=== PATIENT | male | born 1945 | race African-American/Black ===

== ENCOUNTER 2017-01-31 17:36 | Inpatient (IN) | payer MEDICARE, MEDICAID ==
[~2017-01-31] VITALS: Ht 185.4 cm; Wt 84.8 kg
--- NOTE | 2017-01-31 18:00 | NUR ---
[id number]: PT IS 71 YEARS OLD MALE ADMITTED ON 5150 FOR DTS AND DTO. ACCORDING TO THE HOLD PT IS ENDORSING BY SUICIDE AND HEARING VOICES TELLING HIM TO HARM HIMSELF. UPON INTERVIEWING ACCORDING TO THE HOLD, PT PRESENTS AGITATED, ORIENTEDX3. PT STATES, 'MULTIPLE VOICES ARE SAYING RU INTO TRAFFIC, GET HIT BY THE CAR AND TELLING ME TO BLOW MY BRAINS." PT HAS DIAGNOSIS OF SCHIZOPHRENIA, PARANOID TYPE. PT HAS CONGESTIVE HEART FAILURE, CAD, DM TYPE 2, HYPERCHOLESTEREMIA, HYPERLIPIDEMIA, HTN. NOTIFIED DR. IGLESIAS ABOUT NEW ADMISSION. BELONGINGS STORED AND DOCUMENTED. CONSENT DONE. NO COMPUTER DOCUMENTATION COMPLETED. WILL ENDORSE TO INCOMING NURSE TO COMPLETE ADMISSION AND CONTINUATION OF CARE.
[2017-01-31 18:36] VITALS: BP 140/82
[2017-01-31 20:25] VITALS: BP 142/77
--- NOTE | 2017-01-31 21:00 | NUR ---
GPS RN NOTE: NOTIFIED DR. CERVANTES TO RECONCILE MEDICATION. PER PATIENT HE DOES NOT WANT HIS FAMILY TO BE INFORMED OF HIS ADMISSION. WILL CONTINUE TO MONITOR [id number] FOR SAFETY.
[2017-01-31] MEDS ORDERED: HYDR-548 PO (21:50)
[2017-01-31] MEDS ORDERED: OLAN20TA3 PO (21:51)
[2017-01-31] MEDS ORDERED: PENT400T2 PO (21:53)
[2017-01-31] MEDS ORDERED: ASPI-991 PO (21:54)
[2017-01-31] MEDS ORDERED: ATOR40TA PO (21:55)
[2017-01-31] MEDS ORDERED: BENZ2TAB7 PO (21:56)
[2017-01-31] MEDS ORDERED: BIMA2.5D5 EACHEYE (21:57)
[2017-01-31] MEDS ORDERED: CARI350T27 PO (21:59)
[2017-01-31] MEDS ORDERED: BUDE10.2 INH (21:59)
[2017-01-31] MEDS ORDERED: CARV3.122 PO (22:00)
[2017-01-31] MEDS ORDERED: CLOP75TA2 PO (22:01)
[2017-01-31] MEDS ORDERED: CYCL5TAB PO (22:03)
[2017-01-31] MEDS ORDERED: DORZ10DR EACHEYE (22:05)
[2017-01-31] MEDS ORDERED: FERR325T28 PO (22:07)
[2017-01-31] MEDS ORDERED: METF10002 PO (22:08)
[2017-01-31] MEDS ORDERED: NITR0.4T6 SL (22:11)
[2017-01-31] MEDS ORDERED: RANI150T12 PO (22:12)
[2017-01-31] MEDS ORDERED: SPIR25TA4 PO (22:13)
[2017-01-31] MEDS ORDERED: TRIH2TAB5 PO (22:14)
[2017-01-31] MEDS ORDERED: TEMAZEPAM 7.5 MG CAPSULE PO PRN (22:30)
[2017-01-31] MEDS ORDERED: ACETAMINOPHEN 325 MG TABLET PO PRN (22:30)
[2017-01-31] MEDS ORDERED: clonazePAM 0.5 MG TABLET PO PRN (22:30)
[2017-01-31] MEDS ORDERED: MAGNESIUM HYDROXIDE 30 ML UDC PO PRN (22:30)
--- NOTE | 2017-02-01 06:00 | NUR ---
GPS RN NOTES: PATIENT STATED HE IS STILL HEARING MULTIPLE VOICES TELLING HIM TO HURT HIMSELF AND OTHERS. NO PLANS OF DOING IT. PATIENT STATED THAT HE IS TRYING TO CONTROL IT. PATIENT ALSO SIGNED THE CONTRACT FOR SAFETY. WILL CONTINUE TO MONITOR [id number] FOR SAFETY
[2017-02-01 08:00] VITALS: BP 126/81
[2017-02-01] MEDS ORDERED: NITR0.6T SL (13:34)
--- NOTE | 2017-02-01 15:04 | NUR ---
GPS RN NOTE: DR CONTRERAS NOTIFIED TO [facility]ED HOME [facility], WITH ACCU CHECK AND INSULIN COVERAGE NO NEW ORDERS AT THIS TIME WILL CONTINUE MONITORING
[2017-02-01 16:00] VITALS: BP 142/78
[2017-02-01] MEDS ORDERED: BENZTROPINE MESYLATE (1 MG) 1 MG TABLET PO SCH (16:00)
[2017-02-01] MEDS: SPIRONOLACTONE 25 MG TABLET PO SCH (16:00)
[2017-02-01] MEDS ORDERED: NITROGLYCERIN 0.6 MG SL PRN (16:00)
[2017-02-01] MEDS: CARISOPRODOL 350 MG TABLET PO SCH (16:26)
[2017-02-01] MEDS: METFORMIN 500 MG TABLET PO SCH (16:27)
[2017-02-01] MEDS: FAMOTIDINE (20 MG) 20 MG TABLET PO SCH (16:27)
[2017-02-01] MEDS: CYCLOBENZAPRINE 10 MG TABLET PO SCH (16:31)
[2017-02-01] MEDS: PENTOXIFYLLINE 400 MG TABLET.SA PO SCH (16:32)
[2017-02-01] MEDS ORDERED: SACU1TAB4 PO (16:53)
[2017-02-01] MEDS: OLANZAPINE 5 MG/TAB.RAPDIS PO SCH ×2 (16:57→21:52)
[2017-02-01] MEDS ORDERED: TRIHEXYPHENIDYL HCL 2 MG TABLET PO SCH (17:00)
[2017-02-01] MEDS: DORZOLAMIDE OPTH 2% 10 ML BOTTLE EACHEYE SCH (17:36)
[2017-02-01 19:46] VITALS: BP 129/71
[2017-02-01] MEDS: ATORVASTATIN 40 MG TABLET PO SCH (21:51)
[2017-02-02 07:01] LABS: ALBUMIN 3.2 g/dL (3.4-5.0); BILIRUBIN,TOTAL 0.2 mg/dL (0.2-1.0); CALCIUM, SERUM 8.9 mg/dL (8.5-10.1); CREATININE 1.1 mg/dL (0.6-1.3); TOTAL PROTEIN, SERUM 6.8 g/dL (6.4-8.2)
[2017-02-02 07:15] LABS: BASOPHILS % (AUTO) 0.4 % (0.0-2.0); EOSINOPHILS # (AUTO) 0.1 /CMM (0.0-0.7); EOSINOPHILS % (AUTO) 1.3 % (0.0-6.0); HEMATOCRIT 42 % (39-51); HEMOGLOBIN 13.8 g/dL (13.5-17.5); LYMPHOCYTES # (AUTO) 1.7 /CMM (0.8-4.8); LYMPHOCYTES % (AUTO) 29.9 % (20.0-44.0); MEAN CORPUSCULAR HEMOGLOBIN 27 PG (26.0-33.0); MEAN CORPUSCULAR HGB CONC 33 g/dl (31.0-36.0); MEAN CORPUSCULAR VOLUME 81 fL (80-96); MONOCYTES # (AUTO) 0.4 /CMM (0.1-1.30); NEUTROPHILS # (AUTO) 3.4 /CMM (1.8-8.9); NEUTROPHILS % (AUTO) 61.4 % (43.0-81.0); PLATELET COUNT (AUTO) 175 /CMM (150-450); RDW COEFFICIENT OF VARIATION 15.3 (11.5-15.0); RED BLOOD CELL COUNT(AUTO) 5.17 MIL/uL (4.5-6.0); WHITE BLOOD COUNT (AUTO) 5.6 K/uL (4.3-11.0)
[2017-02-02 08:00] VITALS: BP 128/70
[2017-02-02] MEDS ORDERED: TRIHEXYPHENIDYL HCL 2 MG TABLET PO SCH (08:29)
[2017-02-02] MEDS: BENZTROPINE MESYLATE (1 MG) 1 MG TABLET PO SCH (09:00)
[2017-02-02] MEDS: DORZOLAMIDE OPTH 2% 10 ML BOTTLE EACHEYE SCH ×2 (11:12→16:53)
[2017-02-02] MEDS: LUMIGAN EYE EACHEYE SCH (11:12)
[2017-02-02] MEDS: FERROUS SULFATE (325 MG) 325 MG/TAB TABLET PO SCH (11:13)
[2017-02-02] MEDS: SPIRONOLACTONE 25 MG TABLET PO SCH (11:14)
[2017-02-02] MEDS: CARISOPRODOL 350 MG TABLET PO SCH ×3 (11:14→17:00)
[2017-02-02] MEDS: CYCLOBENZAPRINE 10 MG TABLET PO SCH ×3 (11:14→16:50)
[2017-02-02] MEDS: METFORMIN 500 MG TABLET PO SCH ×2 (11:14→16:50)
[2017-02-02] MEDS: OLANZAPINE 5 MG/TAB.RAPDIS PO SCH ×2 (11:15→21:00)
[2017-02-02] MEDS: ASPIRIN EC 81 MG TABLET.DR PO SCH (11:17)
[2017-02-02] MEDS: FAMOTIDINE (20 MG) 20 MG TABLET PO SCH (11:17)
[2017-02-02] MEDS: CARVEDILOL 3.125 MG TABLET PO SCH (11:17)
[2017-02-02] MEDS: CLOPIDOGREL BISULFATE 75 MG TABLET PO SCH (11:18)
[2017-02-02] MEDS: PENTOXIFYLLINE 400 MG TABLET.SA PO SCH ×2 (11:18→16:49)
[2017-02-02] MEDS: HYDROCODONE/APAP 10/325MG 1 EA TABLET PO PRN ×2 (13:40→21:04)
[2017-02-02 16:00] VITALS: BP 125/69
--- NOTE | 2017-02-02 17:01 | NUR ---
RN Notes Patient refused Soma and Flexeril.
--- NOTE | 2017-02-02 17:29 | NUR ---
RN Note Soma returned to [facility] witnessed by Isabel REMY. Receipt printed. [facility] shows medication's partial dose required to be waisted. Medication not administered and returned packaged. Spoke to pharmacy. Per pharmacy no discrepancies are evident on the pharmacies report. Per pharmacist probably a system error. Charge nurse SANDRITA Sepulveda notified. Receipt kept.
[2017-02-02 20:34] VITALS: BP 115/64
--- NOTE | 2017-02-02 21:00 | NUR ---
GPS RN NOTES: PATIENT REFUSED OLANZAPINE 10MG PO SCHEDULED AT 2100. PATIENT STATED "THAT MEDICATION KNOCKS ME OUT I ONLY TAKE THAT MEDICATION IN THE MORNING" EXPLAINED RISKS AND BENEFITS BUT STRONGLY REFUSED. PATIENT'S RIGHT RESPECTED. WILL CONTINUE TO MONITOR PATIENT SAFETY AND BEHAVIOR [id number].
[2017-02-02] MEDS: ATORVASTATIN 40 MG TABLET PO SCH (21:03)
[2017-02-03] MEDS: MAG HYDROX/AL HYDROX/SIMETH 30 ML UDC PO PRN ×3 (03:18→20:58)
--- NOTE | 2017-02-03 03:18 | NUR ---
GPS RN NOTES: PATIENT COMPLAINED OF HEARTBURN. MAALOX SUSP 30ML GIVEN ORDERED TOLERATED-WELL. WILL CONTINUE TO MONITOR.
[2017-02-03 08:00] VITALS: BP 134/56
[2017-02-03] MEDS: METFORMIN 500 MG TABLET PO SCH ×2 (08:35→16:33)
[2017-02-03] MEDS: OLANZAPINE 5 MG/TAB.RAPDIS PO SCH ×2 (08:35→21:20)
[2017-02-03] MEDS: ASPIRIN EC 81 MG TABLET.DR PO SCH (08:36)
[2017-02-03] MEDS: SPIRONOLACTONE 25 MG TABLET PO SCH (08:36)
[2017-02-03] MEDS: CARVEDILOL 3.125 MG TABLET PO SCH (08:39)
[2017-02-03] MEDS: CARISOPRODOL 350 MG TABLET PO SCH ×3 (08:39→16:53)
[2017-02-03] MEDS: LUMIGAN EYE EACHEYE SCH (08:40)
[2017-02-03] MEDS: BENZTROPINE MESYLATE (1 MG) 1 MG TABLET PO SCH (08:40)
[2017-02-03] MEDS: DORZOLAMIDE OPTH 2% 10 ML BOTTLE EACHEYE SCH ×2 (08:40→16:39)
[2017-02-03] MEDS: CYCLOBENZAPRINE 10 MG TABLET PO SCH ×3 (08:40→16:37)
[2017-02-03] MEDS: FAMOTIDINE (20 MG) 20 MG TABLET PO SCH (08:52)
[2017-02-03] MEDS: FERROUS SULFATE (325 MG) 325 MG/TAB TABLET PO SCH (08:52)
[2017-02-03] MEDS: CLOPIDOGREL BISULFATE 75 MG TABLET PO SCH (08:52)
[2017-02-03] MEDS: PENTOXIFYLLINE 400 MG TABLET.SA PO SCH ×2 (08:59→16:37)
[2017-02-03] MEDS ORDERED: TRIHEXYPHENIDYL HCL 2 MG TABLET PO SCH (09:00)
--- NOTE | 2017-02-03 09:31 | NUR ---
Discharge Planning: NEHA called [facility], at the request of patient. NEHA contacted [facility] in [place], . NEHA left him a voicemail with contact information. NEHA also called Cynthia Abdi from [facility], . NEHA left a voicemail for Cynthia asking her to call back. NEHA provided her direct contact information.
[2017-02-03] MEDS ORDERED: Budesonide/Formoterol Fumarate (Symbicort 160-4.5 Mcg In INH SCH (10:30)
--- NOTE | 2017-02-03 11:24 | NUR ---
Discharge Planning: SW spoke with patient regarding his wishes for placement in sober living. Patient stated that he would like to be in the [facility] and that $500 is within his budget. SW confirmed that patient receives SSI $880/month. NEHA called Cynthia Abdi from [facility] in [place], , and informed her of this. Cynthia stated that she does have a bed available for patient and will call back with more information.
[2017-02-03] MEDS: FLUTICASONE/VILANTEROL 1 EACH BLST.W.DEV IH SCH (12:00)
--- NOTE | 2017-02-03 12:27 | NUR ---
Initial Discharge Plan: Patient is currently homeless. Patient expressed an interest in sober living facilities. SW provided patient with a list of sober living facilities and patient chose ones in his sal range and location preference. SW called a few facilities. Please see discharge planning notes for additional information SW to form a safe and proper discharge.
--- NOTE | 2017-02-03 13:29 | NUR ---
GPS RN NOTE: PT WAS SEEN AND EXAMINE BY DR DREA SAVAGE AWARE OF PT HOME MEDICATION LIST PT PROVIDED, A1C 8.0 NEW ORDER ACCU CHECK AC /HS ORDER PLACED AND CARED OUT WILL CONTINUE MONITORING FOR SAFETY AND BEHAVIOR Q 15 MIN .
--- NOTE | 2017-02-03 13:48 | NUR ---
DISCHARGE PLANNING: NEHA called [facility], , to inquire about a sober living facility in [place]. NEHA left a voicemail with contact information. NEHA to follow up.
[2017-02-03] MEDS ORDERED: DEXTROSE 50%-WATER 50 ML DISP.SYRIN IV PRN (14:00)
[2017-02-03] MEDS: HYDROCODONE/APAP 10/325MG 1 EA TABLET PO PRN (14:52)
--- NOTE | 2017-02-03 15:17 | NUR ---
GPS RN NOTE; PATIENT COMPLAINING OF LOWER BACK PAIN 11/15 REFUSED SOMA AND REQUESTING NORCO,NORCO 10 /325 MG PO PRN GIVEN PER ORDER WILL CONTINUE MONITORING FOR SAFETY AND BEHAVIOR Q 15 MIN
[2017-02-03] MEDS: BLOOD SUGAR DIAGNOSTIC 1 EACH STRIP IN SCH ×2 (16:46→21:42)
[2017-02-03] MEDS: TRIHEXYPHENIDYL HCL 2 MG TABLET PO SCH (16:55)
[2017-02-03 20:31] VITALS: BP 121/64
[2017-02-03] MEDS: ENTRESTO PO SCH (21:20)
[2017-02-03] MEDS: ATORVASTATIN 40 MG TABLET PO SCH (21:20)
[2017-02-04] MEDS: BLOOD SUGAR DIAGNOSTIC 1 EACH STRIP IN SCH ×4 (08:11→22:00)
[2017-02-04] MEDS: OLANZAPINE 5 MG/TAB.RAPDIS PO SCH ×2 (08:11→21:15)
[2017-02-04] MEDS: SPIRONOLACTONE 25 MG TABLET PO SCH (08:12)
[2017-02-04] MEDS: TRIHEXYPHENIDYL HCL 2 MG TABLET PO SCH ×2 (08:12→17:06)
[2017-02-04] MEDS: ASPIRIN EC 81 MG TABLET.DR PO SCH (08:13)
[2017-02-04] MEDS: CARVEDILOL 3.125 MG TABLET PO SCH (08:13)
[2017-02-04] MEDS: CYCLOBENZAPRINE 10 MG TABLET PO SCH ×3 (08:14→17:08)
[2017-02-04] MEDS: METFORMIN 500 MG TABLET PO SCH ×2 (08:14→17:06)
[2017-02-04] MEDS: CLOPIDOGREL BISULFATE 75 MG TABLET PO SCH (08:15)
[2017-02-04] MEDS: CARISOPRODOL 350 MG TABLET PO SCH ×3 (08:15→17:06)
[2017-02-04] MEDS: PENTOXIFYLLINE 400 MG TABLET.SA PO SCH ×2 (08:15→17:06)
[2017-02-04] MEDS: FAMOTIDINE (20 MG) 20 MG TABLET PO SCH (08:15)
[2017-02-04] MEDS: FERROUS SULFATE (325 MG) 325 MG/TAB TABLET PO SCH (08:16)
[2017-02-04] MEDS: FLUTICASONE/VILANTEROL 1 EACH BLST.W.DEV IH SCH (08:17)
[2017-02-04] MEDS: DORZOLAMIDE OPTH 2% 10 ML BOTTLE EACHEYE SCH ×2 (08:18→17:04)
[2017-02-04] MEDS: LUMIGAN EYE EACHEYE SCH (08:18)
[2017-02-04] MEDS: ENTRESTO PO SCH ×2 (08:19→21:55)
[2017-02-04] MEDS: INSULIN REGULAR, HUMAN 100 UNIT/ML 3 ML VIAL SQ PRN ×2 (08:23→18:19)
--- NOTE | 2017-02-04 08:23 | NUR ---
[id number]: BLOOD SUGAR IS 140 MG/DL AND GAVE 2 UNITS OF REGULAR INSULIN
[2017-02-04 08:28] VITALS: BP 113/61
--- NOTE | 2017-02-04 10:28 | NUR ---
PT. WITH CERTIFICATION REVIEW HEARING REPRESENTED BY HEARING REFEREE, PTS. ADVOCATE AND HOSPITAL STAFF. THE PATIENT, AFTER TALKING WITH THE ADVOCATE, HAS DECIDED TO : BE PRESENT AT THE CERTIFICATION REVIEW HEARING. AFTER CONSIDERING ALL THE EVIDENCE PRESENTED, THE HEARING REFEREE FINDS THAT: THERE IS NOT PROBABLE CAUSE TO BELIEVE THAT THE PERSON, A RESULT OF A MENTAL DISORDER IS A DANGER TO SELF, A DANGER TO OTHERS OR GRAVELY DISABLED. THE PATIENT MUST BE RELEASED OR REMAIN AT THE FACILITY ON A VOLUNTARY BASIS AND PT. SIGNED THE VOLUNTARY PAPERS.
--- NOTE | 2017-02-04 11:11 | NUR ---
Discharge Planning: NEHA called Cynthia Abdi from [facility], and left a voicemail asking to follow up on patient / placement.
--- NOTE | 2017-02-04 11:11 | NUR ---
Discharge Planning: SW reached out to a contact at [facility] [phone], asking for resources to assist in placing patient in a sober living.
--- NOTE | 2017-02-04 11:40 | NUR ---
[id number]: GAVE MILK OF MAGNESIA 30 ML PO DUE TO CONSTIPATION UPON PT REQUEST AND WILL CONTINUE TO MONITOR FOR EFFECTIVENESS OF MEDICATION
--- NOTE | 2017-02-04 11:43 | NUR ---
[id number]: BLOOD SUGAR IS 123 MG/DL AND NO INSULIN REQUIRED AT THIS TIME
--- NOTE | 2017-02-04 12:24 | NUR ---
Discharge Planning: At the request of patient, NEHA faxed an inquiry to [address] / fax number [phone]. NEHA will also fax to alternative placement options.
[2017-02-04] MEDS: HYDROCODONE/APAP 10/325MG 1 EA TABLET PO PRN ×2 (13:34→20:54)
--- NOTE | 2017-02-04 13:53 | NUR ---
Discharge Planning: NEHA heard back from [address] / fax number [phone], who stated that, per DON, patient was not accepted.
--- NOTE | 2017-02-04 14:00 | NUR ---
Discharge Plan: NEHA contacted Chin, who owns a sober living at [address] [address] / [phone]. Chin stated that he has a bed available for patient and stated that he knows the patient personally. Patient wanted to go to that facility. NEHA will make the arrangements.
--- NOTE | 2017-02-04 15:24 | NUR ---
Discharge Plan: NEHA confirmed with Chin, who owns a sober living at [address] [address] / [phone], that patient is expected to arrive tomorrow morning. Chin thanked NEHA for verifying.
[2017-02-04 16:00] VITALS: BP 114/65
--- NOTE | 2017-02-04 18:19 | NUR ---
[id number]: BLOOD SUGAR IS 168 MG/DL AND GAVE 3 UNITS OF REGULAR INSULIN
[2017-02-04 20:00] VITALS: BP 115/67
[2017-02-04] MEDS: ATORVASTATIN 40 MG TABLET PO SCH (21:16)
[2017-02-05] MEDS: BLOOD SUGAR DIAGNOSTIC 1 EACH STRIP IN SCH (07:51)
[2017-02-05 08:21] VITALS: BP 100/54
[2017-02-05] MEDS: METFORMIN 500 MG TABLET PO SCH (08:41)
[2017-02-05] MEDS: ENTRESTO PO SCH (08:41)
[2017-02-05] MEDS: PENTOXIFYLLINE 400 MG TABLET.SA PO SCH (08:41)
[2017-02-05] MEDS: FLUTICASONE/VILANTEROL 1 EACH BLST.W.DEV IH SCH (08:41)
[2017-02-05] MEDS: FERROUS SULFATE (325 MG) 325 MG/TAB TABLET PO SCH (08:41)
[2017-02-05] MEDS: FAMOTIDINE (20 MG) 20 MG TABLET PO SCH (08:42)
[2017-02-05] MEDS: CARISOPRODOL 350 MG TABLET PO SCH (08:42)
[2017-02-05] MEDS: CYCLOBENZAPRINE 10 MG TABLET PO SCH (08:42)
[2017-02-05] MEDS: ASPIRIN EC 81 MG TABLET.DR PO SCH (08:42)
[2017-02-05] MEDS: OLANZAPINE 5 MG/TAB.RAPDIS PO SCH (08:42)
[2017-02-05] MEDS: TRIHEXYPHENIDYL HCL 2 MG TABLET PO SCH (08:42)
[2017-02-05] MEDS: CLOPIDOGREL BISULFATE 75 MG TABLET PO SCH (08:42)
[2017-02-05 08:43] VITALS: BP 100/54
[2017-02-05] MEDS: CARVEDILOL 3.125 MG TABLET PO SCH (08:43)
[2017-02-05] MEDS: SPIRONOLACTONE 25 MG TABLET PO SCH (08:43)
[2017-02-05] MEDS: DORZOLAMIDE OPTH 2% 10 ML BOTTLE EACHEYE SCH (08:44)
[2017-02-05] MEDS: LUMIGAN EYE EACHEYE SCH (08:44)
[2017-02-05] MEDS: INSULIN REGULAR, HUMAN 100 UNIT/ML 3 ML VIAL SQ PRN (08:45)
--- NOTE | 2017-02-05 08:53 | NUR ---
GPS/RN-NOTES PATIENT BLOOD SUGAR WAS 146MG/DL, 2 UNITS OF R INSULIN GIVEN ORDERED
--- NOTE | 2017-02-05 08:54 | NUR ---
DR. IGLESIAS GAVE A DISCHARGE ORDER AND HE WILL CALL IN HE PRESCRIPTIONS TO THE PHARMACY. TO FOLLOW UP WITH PSYCH AND MEDICAL DOCTORS.
--- NOTE | 2017-02-05 10:16 | NUR ---
CALLED [facility] AT AND SPOKE TO ABIR THE PHARMACIST AND CALLED THE PRESCRIPTIONS FOR 1 MONTH SUPPLY.
--- NOTE | 2017-02-05 10:22 | NUR ---
Discharge Note: Patient will be discharged to Sober Living Facility located at [address] [place] [address] / [phone]. Patient will be discharged via taxi transportation arranged by through [employer], . The muck operator of the facility, Chin [phone], is aware of patients arrival. Chin stated that he also knows the patient personally and is happy to have a bed available for him. Patient has no family to notify. Upon discharge, patient denied homicidal and suicidal ideation. Please note that patient was on voluntary stay. Patient will follow up with his ldr nurse, Dr. Grant Medina [address] [address], [place] [address] [phone]. Patient does not see a psychiatrist, but was referred to [address] [phone]. Patient was also provided a referral to [address] [address] / and was encouraged to present on Wednesday02/08/17 at 9:00am for intake screening. Additional referrals provided were [facility]al[facility] [address] [facility] and [facility] [address] [facility] / .
--- NOTE | 2017-02-05 10:45 | NUR ---
GPS/PARBOILER-NOTES PATIENT DISCHARGE TO SOBER LIVING FACILITY TODAY. DR. IGLESIAS AND DR. SHEPARD AWARE AND AGREES OF PATIENT DISCHARGE. ALL DISCHARGE MEDICATIONS WAS REVIEWED WITH THE PATIENT WITH UNDERSTANDING. MEDICAL RX WAS GIVEN TO THE PATIENT WITH INSTRUCTIONS.PSYCH MEDICATIONS WAS ALREADY CALLED TO THE [facility] CHARGE NURSE SPOKE TO [facility] (PHARMACIES) PATIENT WAS MADE AWARE. PATIENT LEFT THE UNIT IN STABLE CONDITION, AMBULATORY ALERT ORIENTED X4 WITH ALL HIS BELONGINGS. PATIENT DID NOT VERBALIZE SI/HI,DENIES VISUAL/AUDITORY HALLUCINATIONS AT THE TIME OF DISCHARGE. HE WAS ASSISTED BY ONE TRANSMISSION AND PROTECTION ENGINEER STAFF IN THE LOBBY FOR SAFETY. PATIENT HAS NO FAMILY TO NOTIFY.PATIENT WAS DIRECTOR GAME BY [employer]. Addendum: 02/05/17 at 1109 by NAA GLOVER LVN IN ADDITION TO MY NOTES ABOVE , PATIENT STRONGLY REFUSED BODY ASSESSMENT DESPITE EXPLANATIONS HOSPITAL POLICIES. PATIENT STATED" NO NEED".
== END 2017-02-05 10:45 | disposition home or self-care (01) | DRG 885 ==
LOC: GPS 17:36
PROVIDERS: ADMIT Psychiatry & Neurology Psychiatry; ATTEND Internal Medicine
DX: F39 Unspecified mood [affective] disorder (principal); I11.0 Hypertensive heart disease with heart failure; E11.65 Type 2 diabetes mellitus with hyperglycemia; I50.32 Chronic diastolic (congestive) heart failure; R45.851 Suicidal ideations; F23 Brief psychotic disorder; I25.10 Atherosclerotic heart disease of native coronary artery without angina pectoris; E78.5 Hyperlipidemia, unspecified; Z59.0 Homelessness; Z91.19 Patient's noncompliance with other medical treatment and regimen; Z79.84 Long term (current) use of oral hypoglycemic drugs
CPT/HCPCS: 36415; 80053-TC; 80061-TC; 82962-TC; 85025-TC; 87081-TC; J1815

== ENCOUNTER 2017-02-20 19:09 | Inpatient (IN) | payer MEDICARE, MEDICAID ==
[~2017-02-20] VITALS: Ht 185.4 cm; Wt 93.9 kg
[~2017-02-20 19:09] MED LIST: ASPI-1152 PO; ATOR40TA PO; BENZ2TAB7 PO; BIMA2.5D5 EACHEYE; BUDE10.2 INH; CARI350T27 PO; CARV3.122 PO; CLOP75TA15 PO; CYCL5TAB PO; DORZ10DR EACHEYE; FERR325T28 PO; HYDR-548 PO; METF10002 PO; NITR0.6T SL; OLAN20TA3 PO; PENT400T2 PO; RANI150T12 PO; SACU1TAB4 PO; SPIR25TA4 PO; TRIH2TAB4 PO
[2017-02-20] MEDS ORDERED: MAGNESIUM HYDROXIDE 30 ML UDC PO PRN (20:00)
[2017-02-20] MEDS ORDERED: clonazePAM 0.5 MG TABLET PO PRN (20:00)
[2017-02-20] MEDS ORDERED: ACETAMINOPHEN 325 MG TABLET PO PRN (20:00)
[2017-02-20] MEDS ORDERED: MAG HYDROX/AL HYDROX/SIMETH 30 ML UDC PO PRN (20:00)
[2017-02-21 01:39] VITALS: BP 128/78
[2017-02-21 07:17] LABS: BASOPHILS # (AUTO) 0.1 /CMM (0.0-0.2); BASOPHILS % (AUTO) 0.9 % (0.0-2.0); EOSINOPHILS # (AUTO) 0.1 /CMM (0.0-0.7); EOSINOPHILS % (AUTO) 1.8 % (0.0-6.0); HEMATOCRIT 38 % (39-51); HEMOGLOBIN 12.3 g/dL (13.5-17.5); LYMPHOCYTES # (AUTO) 1.7 /CMM (0.8-4.8); LYMPHOCYTES % (AUTO) 25.9 % (20.0-44.0); MEAN CORPUSCULAR HEMOGLOBIN 27 PG (26.0-33.0); MEAN CORPUSCULAR HGB CONC 33 g/dl (31.0-36.0); MEAN CORPUSCULAR VOLUME 82 fL (80-96); MONOCYTES # (AUTO) 0.5 /CMM (0.1-1.30); NEUTROPHILS # (AUTO) 4.2 /CMM (1.8-8.9); NEUTROPHILS % (AUTO) 63.4 % (43.0-81.0); PLATELET COUNT (AUTO) 203 /CMM (150-450); RDW COEFFICIENT OF VARIATION 16.8 (11.5-15.0); RED BLOOD CELL COUNT(AUTO) 4.59 MIL/uL (4.5-6.0); WHITE BLOOD COUNT (AUTO) 6.6 K/uL (4.3-11.0)
[2017-02-21] MEDS ORDERED: DEXTROSE 50%-WATER 50 ML DISP.SYRIN IV PRN (07:30)
[2017-02-21 07:40] LABS: ALBUMIN 3.2 g/dL (3.4-5.0); BILIRUBIN,TOTAL 0.2 mg/dL (0.2-1.0); CALCIUM, SERUM 8.7 mg/dL (8.5-10.1); POTASSIUM 4.1 mmol/L (3.5-5.1); TOTAL PROTEIN, SERUM 6.4 g/dL (6.4-8.2)
[2017-02-21 07:42] LABS: CHOLESTEROL 112 mg/dL (<200); HDL CHOLESTEROL 31 mg/dL (40-60); LDL 65 mg/dL (0-99); TRIGLYCERIDES 126 mg/dL (30-150)
[2017-02-21 08:00] VITALS: BP 125/74
[2017-02-21] MEDS: BLOOD SUGAR DIAGNOSTIC 1 EACH STRIP IN SCH ×4 (08:25→21:48)
[2017-02-21] MEDS ORDERED: BIMATOPROST 2.5 ML DROPS OP SCH (11:37)
[2017-02-21] MEDS: DORZOLAMIDE OPTH 2% 10 ML BOTTLE EACHEYE SCH ×2 (11:38→16:47)
[2017-02-21] MEDS ORDERED: NITROGLYCERIN 0.4 MG/TAB BOTTLE SL PRN (12:00)
[2017-02-21] MEDS: CARISOPRODOL 350 MG TABLET PO SCH ×2 (12:09→16:47)
[2017-02-21] MEDS: BENZTROPINE MESYLATE (1 MG) 1 MG TABLET PO SCH (12:09)
[2017-02-21] MEDS: OLANZAPINE 10 MG TABLET PO SCH ×2 (13:36→23:45)
[2017-02-21] MEDS: CYCLOBENZAPRINE 10 MG TABLET PO SCH ×2 (13:36→16:46)
[2017-02-21 15:58] VITALS: BP 142/80
[2017-02-21] MEDS: PENTOXIFYLLINE 400 MG TABLET.SA PO SCH (16:46)
[2017-02-21] MEDS: TRIHEXYPHENIDYL HCL 2 MG TABLET PO SCH (16:46)
[2017-02-21] MEDS: METFORMIN 500 MG TABLET PO SCH (16:47)
[2017-02-21] MEDS ORDERED: Budesonide/Formoterol Fumarate (Symbicort 160-4.5 Mcg In INH SCH (17:00)
[2017-02-21] MEDS: INSULIN REGULAR, HUMAN 100 UNIT/ML 3 ML VIAL SQ PRN (17:17)
[2017-02-21] MEDS: HYDROCODONE/APAP 10/325MG 1 EA TABLET PO PRN (17:50)
[2017-02-21 20:10] VITALS: BP 119/82
[2017-02-21] MEDS: TEMAZEPAM 7.5 MG CAPSULE PO PRN (21:24)
[2017-02-21] MEDS: ATORVASTATIN 40 MG TABLET PO SCH (21:24)
[2017-02-21] MEDS: LATANOPROST EYE DROP 0.005% 2.5 ML BOTTLE OP SCH (21:26)
[2017-02-22] MEDS: BLOOD SUGAR DIAGNOSTIC 1 EACH STRIP IN SCH ×4 (08:09→21:51)
[2017-02-22 08:24] VITALS: BP 100/57
[2017-02-22] MEDS: PANTOPRAZOLE 40 MG TABLET.DR PO SCH (08:32)
[2017-02-22] MEDS: METFORMIN 500 MG TABLET PO SCH ×2 (08:41→17:00)
[2017-02-22] MEDS: PENTOXIFYLLINE 400 MG TABLET.SA PO SCH ×2 (08:42→17:00)
[2017-02-22] MEDS: SPIRONOLACTONE 25 MG TABLET PO SCH (08:42)
[2017-02-22] MEDS: CLOPIDOGREL BISULFATE 75 MG TABLET PO SCH (08:42)
[2017-02-22] MEDS: BENZTROPINE MESYLATE (1 MG) 1 MG TABLET PO SCH (08:42)
[2017-02-22] MEDS: CARVEDILOL 3.125 MG TABLET PO SCH (08:42)
[2017-02-22] MEDS: ASPIRIN EC 81 MG TABLET.DR PO SCH (08:42)
[2017-02-22] MEDS: CYCLOBENZAPRINE 10 MG TABLET PO SCH ×3 (08:42→17:00)
[2017-02-22] MEDS: FERROUS SULFATE (325 MG) 325 MG/TAB TABLET PO SCH (08:42)
[2017-02-22] MEDS: TRIHEXYPHENIDYL HCL 2 MG TABLET PO SCH ×2 (08:42→17:00)
[2017-02-22] MEDS: CARISOPRODOL 350 MG TABLET PO SCH ×3 (08:42→17:00)
[2017-02-22] MEDS: DORZOLAMIDE OPTH 2% 10 ML BOTTLE EACHEYE SCH ×2 (08:47→17:00)
[2017-02-22] MEDS ORDERED: VALSARTAN PO SCH (09:00)
[2017-02-22] MEDS ORDERED: SACUBITRIL PO SCH (09:00)
[2017-02-22] MEDS: OLANZAPINE 10 MG TABLET PO SCH ×2 (12:53→23:48)
[2017-02-22] MEDS: INSULIN REGULAR, HUMAN 100 UNIT/ML 3 ML VIAL SQ PRN ×3 (12:57→21:54)
[2017-02-22 15:57] VITALS: BP 103/56
[2017-02-22] MEDS: HYDROCODONE/APAP 10/325MG 1 EA TABLET PO PRN (16:28)
[2017-02-22 19:47] VITALS: BP 127/71
[2017-02-22] MEDS: LATANOPROST EYE DROP 0.005% 2.5 ML BOTTLE OP SCH (21:56)
[2017-02-22] MEDS: ATORVASTATIN 40 MG TABLET PO SCH (21:57)
[2017-02-23] MEDS: BLOOD SUGAR DIAGNOSTIC 1 EACH STRIP IN SCH ×4 (08:10→21:49)
[2017-02-23] MEDS: INSULIN REGULAR, HUMAN 100 UNIT/ML 3 ML VIAL SQ PRN ×2 (08:13→17:10)
[2017-02-23] MEDS: TRIHEXYPHENIDYL HCL 2 MG TABLET PO SCH ×2 (08:14→16:18)
[2017-02-23] MEDS: PANTOPRAZOLE 40 MG TABLET.DR PO SCH (08:14)
[2017-02-23] MEDS: CLOPIDOGREL BISULFATE 75 MG TABLET PO SCH (08:15)
[2017-02-23] MEDS: CARVEDILOL 3.125 MG TABLET PO SCH (08:15)
[2017-02-23] MEDS: CYCLOBENZAPRINE 10 MG TABLET PO SCH ×3 (08:15→16:18)
[2017-02-23] MEDS: CARISOPRODOL 350 MG TABLET PO SCH ×3 (08:15→16:18)
[2017-02-23] MEDS: METFORMIN 500 MG TABLET PO SCH ×2 (08:15→16:18)
[2017-02-23] MEDS: BENZTROPINE MESYLATE (1 MG) 1 MG TABLET PO SCH (08:15)
[2017-02-23] MEDS: PENTOXIFYLLINE 400 MG TABLET.SA PO SCH ×2 (08:15→16:18)
[2017-02-23] MEDS: ASPIRIN EC 81 MG TABLET.DR PO SCH (08:15)
[2017-02-23] MEDS: FERROUS SULFATE (325 MG) 325 MG/TAB TABLET PO SCH (08:15)
[2017-02-23 08:16] VITALS: BP 132/75
[2017-02-23] MEDS: SPIRONOLACTONE 25 MG TABLET PO SCH (10:34)
[2017-02-23] MEDS: DORZOLAMIDE OPTH 2% 10 ML BOTTLE EACHEYE SCH ×2 (10:35→17:04)
[2017-02-23] MEDS: OLANZAPINE 10 MG TABLET PO SCH (12:00)
[2017-02-23 15:51] VITALS: BP 143/76
[2017-02-23 21:03] VITALS: BP 95/53
[2017-02-23] MEDS: ATORVASTATIN 40 MG TABLET PO SCH (21:12)
[2017-02-23] MEDS: LATANOPROST EYE DROP 0.005% 2.5 ML BOTTLE OP SCH ×2 (21:13→21:15)
[2017-02-23 22:00] VITALS: BP 110/80
[2017-02-24] MEDS: OLANZAPINE 10 MG TABLET PO SCH ×2 (00:07→12:14)
[2017-02-24] MEDS: BLOOD SUGAR DIAGNOSTIC 1 EACH STRIP IN SCH ×4 (07:45→21:54)
[2017-02-24] MEDS: INSULIN REGULAR, HUMAN 100 UNIT/ML 3 ML VIAL SQ PRN ×3 (07:46→17:21)
[2017-02-24 08:00] VITALS: BP 131/82
[2017-02-24] MEDS: CYCLOBENZAPRINE 10 MG TABLET PO SCH ×3 (08:37→16:28)
[2017-02-24] MEDS: SPIRONOLACTONE 25 MG TABLET PO SCH (08:37)
[2017-02-24] MEDS: ASPIRIN EC 81 MG TABLET.DR PO SCH (08:37)
[2017-02-24] MEDS: TRIHEXYPHENIDYL HCL 2 MG TABLET PO SCH ×2 (08:37→16:28)
[2017-02-24] MEDS: PANTOPRAZOLE 40 MG TABLET.DR PO SCH (08:37)
[2017-02-24] MEDS: METFORMIN 500 MG TABLET PO SCH ×2 (08:37→16:28)
[2017-02-24] MEDS: CARISOPRODOL 350 MG TABLET PO SCH ×3 (08:37→16:28)
[2017-02-24] MEDS: PENTOXIFYLLINE 400 MG TABLET.SA PO SCH ×2 (08:37→16:28)
[2017-02-24] MEDS: CLOPIDOGREL BISULFATE 75 MG TABLET PO SCH (08:37)
[2017-02-24] MEDS: FERROUS SULFATE (325 MG) 325 MG/TAB TABLET PO SCH (08:37)
[2017-02-24] MEDS: BENZTROPINE MESYLATE (1 MG) 1 MG TABLET PO SCH (08:37)
[2017-02-24] MEDS: DORZOLAMIDE OPTH 2% 10 ML BOTTLE EACHEYE SCH ×2 (08:38→16:29)
[2017-02-24] MEDS: CARVEDILOL 3.125 MG TABLET PO SCH (08:39)
[2017-02-24 16:11] VITALS: BP 120/75
[2017-02-24 19:48] VITALS: BP 112/58
[2017-02-24] MEDS: LATANOPROST EYE DROP 0.005% 2.5 ML BOTTLE OP SCH (21:53)
[2017-02-24] MEDS: ATORVASTATIN 40 MG TABLET PO SCH (21:53)
[2017-02-25] MEDS: OLANZAPINE 10 MG TABLET PO SCH ×3 (00:25→22:31)
[2017-02-25 08:00] VITALS: BP 126/56
[2017-02-25] MEDS: CARISOPRODOL 350 MG TABLET PO SCH ×4 (08:29→16:49)
[2017-02-25] MEDS: BLOOD SUGAR DIAGNOSTIC 1 EACH STRIP IN SCH ×4 (08:29→22:32)
[2017-02-25] MEDS: TRIHEXYPHENIDYL HCL 2 MG TABLET PO SCH ×2 (08:29→16:40)
[2017-02-25] MEDS: SPIRONOLACTONE 25 MG TABLET PO SCH (08:29)
[2017-02-25] MEDS: CLOPIDOGREL BISULFATE 75 MG TABLET PO SCH (08:29)
[2017-02-25] MEDS: CYCLOBENZAPRINE 10 MG TABLET PO SCH ×3 (08:29→16:40)
[2017-02-25] MEDS: FERROUS SULFATE (325 MG) 325 MG/TAB TABLET PO SCH (08:30)
[2017-02-25] MEDS: ASPIRIN EC 81 MG TABLET.DR PO SCH (08:31)
[2017-02-25] MEDS: METFORMIN 500 MG TABLET PO SCH ×2 (08:31→16:40)
[2017-02-25] MEDS: PENTOXIFYLLINE 400 MG TABLET.SA PO SCH ×2 (08:31→16:40)
[2017-02-25] MEDS: PANTOPRAZOLE 40 MG TABLET.DR PO SCH (08:31)
[2017-02-25] MEDS: CARVEDILOL 3.125 MG TABLET PO SCH (08:34)
[2017-02-25] MEDS: BENZTROPINE MESYLATE (1 MG) 1 MG TABLET PO SCH (08:34)
[2017-02-25] MEDS: DORZOLAMIDE OPTH 2% 10 ML BOTTLE EACHEYE SCH ×2 (08:39→16:41)
[2017-02-25 16:00] VITALS: BP 125/74
[2017-02-25] MEDS: HYDROCODONE/APAP 10/325MG 1 EA TABLET PO PRN (16:49)
[2017-02-25 20:00] VITALS: BP_SYST 136; BP_DIAS 80; BP_DIAS 86
[2017-02-25] MEDS: ATORVASTATIN 40 MG TABLET PO SCH (22:31)
[2017-02-25] MEDS: LATANOPROST EYE DROP 0.005% 2.5 ML BOTTLE OP SCH (22:31)
[2017-02-25] MEDS: INSULIN REGULAR, HUMAN 100 UNIT/ML 3 ML VIAL SQ PRN (22:32)
[2017-02-26] MEDS: BLOOD SUGAR DIAGNOSTIC 1 EACH STRIP IN SCH ×4 (07:41→21:33)
[2017-02-26] MEDS: INSULIN REGULAR, HUMAN 100 UNIT/ML 3 ML VIAL SQ PRN ×2 (07:42→21:32)
[2017-02-26 08:00] VITALS: BP 103/59
[2017-02-26] MEDS: PANTOPRAZOLE 40 MG TABLET.DR PO SCH (08:10)
[2017-02-26] MEDS: PENTOXIFYLLINE 400 MG TABLET.SA PO SCH ×2 (08:11→16:48)
[2017-02-26] MEDS: ASPIRIN EC 81 MG TABLET.DR PO SCH (08:11)
[2017-02-26] MEDS: CYCLOBENZAPRINE 10 MG TABLET PO SCH ×3 (08:11→16:41)
[2017-02-26] MEDS: FERROUS SULFATE (325 MG) 325 MG/TAB TABLET PO SCH (08:11)
[2017-02-26] MEDS: OLANZAPINE 10 MG TABLET PO SCH ×2 (08:11→21:13)
[2017-02-26] MEDS: CARISOPRODOL 350 MG TABLET PO SCH ×3 (08:12→16:48)
[2017-02-26] MEDS: CLOPIDOGREL BISULFATE 75 MG TABLET PO SCH (08:12)
[2017-02-26] MEDS: METFORMIN 500 MG TABLET PO SCH ×2 (08:12→16:41)
[2017-02-26] MEDS: TRIHEXYPHENIDYL HCL 2 MG TABLET PO SCH ×2 (08:12→16:41)
[2017-02-26] MEDS: CARVEDILOL 3.125 MG TABLET PO SCH (08:13)
[2017-02-26] MEDS: BENZTROPINE MESYLATE (1 MG) 1 MG TABLET PO SCH (08:14)
[2017-02-26] MEDS: SPIRONOLACTONE 25 MG TABLET PO SCH (08:14)
[2017-02-26] MEDS: HYDROCODONE/APAP 10/325MG 1 EA TABLET PO PRN (08:44)
[2017-02-26] MEDS: DORZOLAMIDE OPTH 2% 10 ML BOTTLE EACHEYE SCH ×2 (08:44→16:41)
[2017-02-26 16:12] VITALS: BP 133/78
[2017-02-26 20:00] VITALS: BP 144/88
[2017-02-26] MEDS: VALSARTAN 40 MG TABLET PO SCH (21:13)
[2017-02-26] MEDS: LATANOPROST EYE DROP 0.005% 2.5 ML BOTTLE OP SCH (21:14)
[2017-02-26] MEDS: ATORVASTATIN 40 MG TABLET PO SCH (21:14)
[2017-02-27] MEDS: BLOOD SUGAR DIAGNOSTIC 1 EACH STRIP IN SCH ×4 (07:53→21:39)
[2017-02-27] MEDS: HYDROCODONE/APAP 10/325MG 1 EA TABLET PO PRN (08:10)
[2017-02-27 08:11] VITALS: BP 120/60
[2017-02-27] MEDS: FERROUS SULFATE (325 MG) 325 MG/TAB TABLET PO SCH (08:51)
[2017-02-27] MEDS: PANTOPRAZOLE 40 MG TABLET.DR PO SCH (08:51)
[2017-02-27] MEDS: BENZTROPINE MESYLATE (1 MG) 1 MG TABLET PO SCH (08:51)
[2017-02-27] MEDS: ASPIRIN EC 81 MG TABLET.DR PO SCH (08:51)
[2017-02-27] MEDS: TRIHEXYPHENIDYL HCL 2 MG TABLET PO SCH ×2 (08:51→17:00)
[2017-02-27] MEDS: CLOPIDOGREL BISULFATE 75 MG TABLET PO SCH (08:51)
[2017-02-27] MEDS: PENTOXIFYLLINE 400 MG TABLET.SA PO SCH ×2 (08:51→17:01)
[2017-02-27] MEDS: OLANZAPINE 10 MG TABLET PO SCH ×2 (08:51→21:15)
[2017-02-27] MEDS: DORZOLAMIDE OPTH 2% 10 ML BOTTLE EACHEYE SCH ×2 (08:52→17:00)
[2017-02-27] MEDS: METFORMIN 500 MG TABLET PO SCH ×2 (08:52→17:00)
[2017-02-27] MEDS: SPIRONOLACTONE 25 MG TABLET PO SCH (08:52)
[2017-02-27] MEDS: CARVEDILOL 3.125 MG TABLET PO SCH (08:58)
[2017-02-27] MEDS: LISINOPRIL (10MG) 10 MG TABLET PO SCH (08:58)
[2017-02-27] MEDS: VALSARTAN 40 MG TABLET PO SCH ×2 (08:59→21:14)
[2017-02-27] MEDS: CARISOPRODOL 350 MG TABLET PO SCH ×3 (09:00→17:00)
[2017-02-27] MEDS: CYCLOBENZAPRINE 10 MG TABLET PO SCH ×3 (09:01→17:00)
[2017-02-27 16:09] VITALS: BP 124/70
[2017-02-27] MEDS: INSULIN REGULAR, HUMAN 100 UNIT/ML 3 ML VIAL SQ PRN (17:39)
[2017-02-27 20:00] VITALS: BP 136/68
[2017-02-27] MEDS: TEMAZEPAM 7.5 MG CAPSULE PO PRN (21:39)
[2017-02-27] MEDS: ATORVASTATIN 40 MG TABLET PO SCH (21:39)
[2017-02-27] MEDS: LATANOPROST EYE DROP 0.005% 2.5 ML BOTTLE OP SCH (22:25)
[2017-02-28 08:00] VITALS: BP 108/64
[2017-02-28] MEDS: BLOOD SUGAR DIAGNOSTIC 1 EACH STRIP IN SCH ×4 (08:12→21:16)
[2017-02-28] MEDS: PANTOPRAZOLE 40 MG TABLET.DR PO SCH (08:13)
[2017-02-28] MEDS: CLOPIDOGREL BISULFATE 75 MG TABLET PO SCH (08:15)
[2017-02-28] MEDS: PENTOXIFYLLINE 400 MG TABLET.SA PO SCH ×2 (08:15→16:16)
[2017-02-28] MEDS: CYCLOBENZAPRINE 10 MG TABLET PO SCH ×3 (08:15→16:16)
[2017-02-28] MEDS: METFORMIN 500 MG TABLET PO SCH ×2 (08:15→16:17)
[2017-02-28] MEDS: TRIHEXYPHENIDYL HCL 2 MG TABLET PO SCH ×2 (08:15→16:16)
[2017-02-28] MEDS: CARISOPRODOL 350 MG TABLET PO SCH ×3 (08:15→16:16)
[2017-02-28] MEDS: FERROUS SULFATE (325 MG) 325 MG/TAB TABLET PO SCH (08:15)
[2017-02-28] MEDS: VALSARTAN 40 MG TABLET PO SCH ×2 (08:16→21:15)
[2017-02-28] MEDS: SPIRONOLACTONE 25 MG TABLET PO SCH (08:16)
[2017-02-28] MEDS: LISINOPRIL (10MG) 10 MG TABLET PO SCH (08:16)
[2017-02-28] MEDS: CARVEDILOL 3.125 MG TABLET PO SCH (08:17)
[2017-02-28] MEDS: ASPIRIN EC 81 MG TABLET.DR PO SCH (08:18)
[2017-02-28] MEDS: OLANZAPINE 10 MG TABLET PO SCH ×2 (08:21→21:16)
[2017-02-28] MEDS: DORZOLAMIDE OPTH 2% 10 ML BOTTLE EACHEYE SCH ×2 (10:10→16:20)
[2017-02-28 16:09] VITALS: BP 167/64
[2017-02-28 19:55] VITALS: BP 114/54
[2017-02-28] MEDS: LATANOPROST EYE DROP 0.005% 2.5 ML BOTTLE OP SCH (21:16)
[2017-02-28] MEDS: ATORVASTATIN 40 MG TABLET PO SCH (21:17)
[2017-02-28] MEDS: INSULIN REGULAR, HUMAN 100 UNIT/ML 3 ML VIAL SQ PRN (21:49)
[2017-03-01 08:00] VITALS: BP 149/92
[2017-03-01] MEDS: BLOOD SUGAR DIAGNOSTIC 1 EACH STRIP IN SCH ×4 (08:05→21:37)
[2017-03-01] MEDS: PANTOPRAZOLE 40 MG TABLET.DR PO SCH (08:56)
[2017-03-01] MEDS: OLANZAPINE 10 MG TABLET PO SCH ×2 (09:04→21:34)
[2017-03-01] MEDS: FERROUS SULFATE (325 MG) 325 MG/TAB TABLET PO SCH (09:04)
[2017-03-01] MEDS: DORZOLAMIDE OPTH 2% 10 ML BOTTLE EACHEYE SCH ×2 (09:04→16:26)
[2017-03-01] MEDS: ASPIRIN EC 81 MG TABLET.DR PO SCH (09:04)
[2017-03-01] MEDS: CLOPIDOGREL BISULFATE 75 MG TABLET PO SCH (09:04)
[2017-03-01] MEDS: METFORMIN 500 MG TABLET PO SCH ×2 (09:04→16:25)
[2017-03-01] MEDS: PENTOXIFYLLINE 400 MG TABLET.SA PO SCH ×2 (09:04→16:25)
[2017-03-01] MEDS: LISINOPRIL (10MG) 10 MG TABLET PO SCH (09:05)
[2017-03-01] MEDS: CARVEDILOL 3.125 MG TABLET PO SCH (09:05)
[2017-03-01] MEDS: SPIRONOLACTONE 25 MG TABLET PO SCH (09:05)
[2017-03-01] MEDS: CYCLOBENZAPRINE 10 MG TABLET PO SCH ×4 (09:05→16:25)
[2017-03-01] MEDS: CARISOPRODOL 350 MG TABLET PO SCH ×4 (09:05→16:25)
[2017-03-01] MEDS: TRIHEXYPHENIDYL HCL 2 MG TABLET PO SCH ×2 (09:05→16:25)
[2017-03-01] MEDS: VALSARTAN 40 MG TABLET PO SCH ×2 (09:06→21:00)
[2017-03-01 16:00] VITALS: BP 118/72
[2017-03-01] MEDS: ATORVASTATIN 40 MG TABLET PO SCH (21:34)
[2017-03-01] MEDS: LATANOPROST EYE DROP 0.005% 2.5 ML BOTTLE OP SCH (21:37)
[2017-03-01 21:48] VITALS: BP 114/55
[2017-03-02 08:00] VITALS: BP 111/75
[2017-03-02] MEDS: CLOPIDOGREL BISULFATE 75 MG TABLET PO SCH (09:06)
[2017-03-02] MEDS: CARISOPRODOL 350 MG TABLET PO SCH ×3 (09:06→17:18)
[2017-03-02] MEDS: ASPIRIN EC 81 MG TABLET.DR PO SCH (09:06)
[2017-03-02] MEDS: METFORMIN 500 MG TABLET PO SCH ×2 (09:06→17:18)
[2017-03-02] MEDS: PANTOPRAZOLE 40 MG TABLET.DR PO SCH (09:07)
[2017-03-02] MEDS: OLANZAPINE 10 MG TABLET PO SCH ×2 (09:07→21:23)
[2017-03-02] MEDS: CYCLOBENZAPRINE 10 MG TABLET PO SCH ×3 (09:07→17:18)
[2017-03-02] MEDS: LISINOPRIL (10MG) 10 MG TABLET PO SCH (09:07)
[2017-03-02] MEDS: PENTOXIFYLLINE 400 MG TABLET.SA PO SCH ×2 (09:07→17:18)
[2017-03-02] MEDS: FERROUS SULFATE (325 MG) 325 MG/TAB TABLET PO SCH (09:08)
[2017-03-02] MEDS: CARVEDILOL 3.125 MG TABLET PO SCH (09:15)
[2017-03-02] MEDS: SPIRONOLACTONE 25 MG TABLET PO SCH (09:15)
[2017-03-02] MEDS: BLOOD SUGAR DIAGNOSTIC 1 EACH STRIP IN SCH ×4 (09:36→21:23)
[2017-03-02] MEDS: TRIHEXYPHENIDYL HCL 2 MG TABLET PO SCH ×2 (09:40→17:18)
[2017-03-02] MEDS: DORZOLAMIDE OPTH 2% 10 ML BOTTLE EACHEYE SCH ×2 (09:43→17:24)
[2017-03-02] MEDS: VALSARTAN 40 MG TABLET PO SCH ×2 (09:44→21:29)
[2017-03-02 16:09] VITALS: BP 100/59
[2017-03-02 19:52] VITALS: BP 112/56
[2017-03-02] MEDS: LATANOPROST EYE DROP 0.005% 2.5 ML BOTTLE OP SCH (21:23)
[2017-03-02] MEDS: ATORVASTATIN 40 MG TABLET PO SCH (21:23)
[2017-03-03] MEDS: INSULIN REGULAR, HUMAN 100 UNIT/ML 3 ML VIAL SQ PRN (07:44)
[2017-03-03] MEDS: BLOOD SUGAR DIAGNOSTIC 1 EACH STRIP IN SCH ×2 (07:44→12:00)
[2017-03-03 08:00] VITALS: BP 137/84
[2017-03-03 08:16] LABS: BASOPHILS % (AUTO) 0.4 % (0.0-2.0); EOSINOPHILS # (AUTO) 0.1 /CMM (0.0-0.7); EOSINOPHILS % (AUTO) 1.5 % (0.0-6.0); HEMATOCRIT 45 % (39-51); HEMOGLOBIN 14.9 g/dL (13.5-17.5); LYMPHOCYTES # (AUTO) 1.7 /CMM (0.8-4.8); LYMPHOCYTES % (AUTO) 27.6 % (20.0-44.0); MEAN CORPUSCULAR HEMOGLOBIN 27 PG (26.0-33.0); MEAN CORPUSCULAR HGB CONC 33 g/dl (31.0-36.0); MEAN CORPUSCULAR VOLUME 82 fL (80-96); MONOCYTES # (AUTO) 0.4 /CMM (0.1-1.30); MONOCYTES % (AUTO) 6.3 % (2.0-12.0); NEUTROPHILS % (AUTO) 64.2 % (43.0-81.0); PLATELET COUNT (AUTO) 258 /CMM (150-450); RDW COEFFICIENT OF VARIATION 17.9 (11.5-15.0); RED BLOOD CELL COUNT(AUTO) 5.48 MIL/uL (4.5-6.0); WHITE BLOOD COUNT (AUTO) 6.3 K/uL (4.3-11.0)
[2017-03-03 08:21] LABS: CALCIUM, SERUM 9.4 mg/dL (8.5-10.1); CREATININE 1.2 mg/dL (0.6-1.3); POTASSIUM 4.7 mmol/L (3.5-5.1)
[2017-03-03] MEDS: CARVEDILOL 3.125 MG TABLET PO SCH (08:51)
[2017-03-03] MEDS: OLANZAPINE 10 MG TABLET PO SCH (08:51)
[2017-03-03] MEDS: METFORMIN 500 MG TABLET PO SCH (08:51)
[2017-03-03] MEDS: FERROUS SULFATE (325 MG) 325 MG/TAB TABLET PO SCH (08:51)
[2017-03-03] MEDS: CLOPIDOGREL BISULFATE 75 MG TABLET PO SCH (08:51)
[2017-03-03] MEDS: CARISOPRODOL 350 MG TABLET PO SCH (08:51)
[2017-03-03] MEDS: PENTOXIFYLLINE 400 MG TABLET.SA PO SCH (08:51)
[2017-03-03] MEDS: TRIHEXYPHENIDYL HCL 2 MG TABLET PO SCH (08:51)
[2017-03-03] MEDS: SPIRONOLACTONE 25 MG TABLET PO SCH (08:51)
[2017-03-03] MEDS: PANTOPRAZOLE 40 MG TABLET.DR PO SCH (08:51)
[2017-03-03] MEDS: ASPIRIN EC 81 MG TABLET.DR PO SCH (08:52)
[2017-03-03] MEDS: CYCLOBENZAPRINE 10 MG TABLET PO SCH (08:52)
[2017-03-03] MEDS: DORZOLAMIDE OPTH 2% 10 ML BOTTLE EACHEYE SCH (08:52)
[2017-03-03] MEDS: LISINOPRIL (10MG) 10 MG TABLET PO SCH (08:52)
[2017-03-03] MEDS: VALSARTAN 40 MG TABLET PO SCH (10:01)
[2017-03-03 11:40] VITALS: BP 123/74
[2017-03-03 11:41] VITALS: BP 123/74
== END 2017-03-03 11:45 | DRG 885 ==
LOC: GPS 19:09
PROVIDERS: ADMIT Psychiatry & Neurology Psychiatry; ATTEND Internal Medicine
DX: F20.9 Schizophrenia, unspecified (principal); I11.0 Hypertensive heart disease with heart failure; E11.65 Type 2 diabetes mellitus with hyperglycemia; I50.32 Chronic diastolic (congestive) heart failure; R45.851 Suicidal ideations; E78.5 Hyperlipidemia, unspecified; I25.10 Atherosclerotic heart disease of native coronary artery without angina pectoris; Z59.0 Homelessness; Z91.19 Patient's noncompliance with other medical treatment and regimen; D63.8 Anemia in other chronic diseases classified elsewhere; H40.9 Unspecified glaucoma; Z79.84 Long term (current) use of oral hypoglycemic drugs
CPT/HCPCS: 36415; 80048-TC; 80053-TC; 80061-TC; 82962-TC; 85025-TC; 87081-TC; J1815